=== PATIENT | female | born 1970 ===

== ENCOUNTER 2017-01-07 17:11 | Emergency (ER) | payer OTHER ==
[2017-01-07 17:12] VITALS: BMI 32.5
[2017-01-07 17:20] VITALS: BP 160/105; PULSE 95; RESP 17; TEMP 98.5; O2SAT 95
--- NOTE | 2017-01-07 17:41 | ED PDOC ---
Arrival/HPI - General Chief Complaint: Hip Pain Time Seen by Provider: 01/07/17 17:23 Historian: Patient - History of Present Illness Narrative History of Present Illness (Text): 01/07/17 17:31 A 46 year old female, whose past medical history includes breast cancer, presents to the emergency department complaining of left hip pain for the past 2 months. Patient took Advil and Motrin, with no relief. Patient reports she was seen in [facility] 2 days ago for the same pain and discharged home only on Cipro for a urinary tract infection. Patient notes chills but denies any fever, nausea, vomiting, diarrhea, abdominal pain, urinary symptoms, chest pain, shortness of breath or any other complaints. Patient does not have a PMD; she is seen at a medical clinic. Time/Duration: Other (2 days) Symptom Course: Unchanged Quality: Other Context: Home Past Medical History - Provider Review Nursing Documentation Reviewed: Yes - Infectious Disease Hx of Infectious Diseases: None - Cardiac Hx Cardiac Disorders: No - Pulmonary Hx Respiratory Disorders: No - Neurological Hx Neurological Disorder: No - HEENT Hx HEENT Disorder: No - Renal Hx Renal Disorder: No - Endocrine/Metabolic Hx Endocrine Disorders: No - Hematological/Oncological Hx Anemia: Yes Hx Cancer: Yes Other/Comment: BREAST CA, CHEMO, RADIATION - Integumentary Hx Dermatological Disorder: No - Musculoskeletal/Rheumatological Hx Falls: No - Gastrointestinal Hx Gastrointestinal Disorders: No - Genitourinary/Gynecological Hx Genitourinary Disorders: Yes Hx Urinary Tract Infection: Yes - Psychiatric Hx Psychophysiologic Disorder: No Hx Substance Use: No - Surgical History Hx Breast Biopsy: Yes Hx Mastectomy: Yes Other/Comment: Daniel cath right breast. Breast rollway man (R breast) - Anesthesia Hx Anesthesia: Yes Family/Social History - Physician Review Nursing Documentation Reviewed: Yes Family/Social History: No Known Family HX Smoking Status: Never Smoked Hx Alcohol Use: No Hx Substance Use: No Allergies/Home Meds Allergies/Adverse Reactions: Allergies No Known Allergies Allergy (Verified 01/07/17 17:14) Home Medications: Home Meds Medication Instructions Recorded Confirmed Tamoxifen Citrate 20 mg PO DAILY 01/05/17 01/07/17 Review of Systems - Physician Review All systems were reviewed & negative as marked: Yes - Review of Systems Constitutional: Night Sweats. absent: Fevers Respiratory: absent: SOB Cardiovascular: absent: Chest Pain Gastrointestinal: absent: Abdominal Pain, Diarrhea, Nausea, Vomiting Genitourinary Female: absent: Dysuria, Frequency, Hematuria, Urine Output Changes Musculoskeletal: Other (Left hip pain) Physical Exam Vital Signs Reviewed: Yes Vital Signs Temp Pulse Resp BP Pulse Ox 01/07/17 17:15 98.5 F 95 H 17 160/105 H 95 Temperature: Afebrile Blood Pressure: Hypertensive Pulse: Regular Respiratory Rate: Normal Appearance: Positive for: Well-Appearing, Non-Toxic, Comfortable Pain Distress: None Mental Status: Positive for: Alert and Oriented X 3 - Systems Exam Head: Present: Atraumatic, Normocephalic Lower Extremity: Present: NORMAL PULSES, Normal ROM, Tenderness (Mild lateral hip pain ), Neurovascularly Intact. No: Edema, CALF TENDERNESS, Swelling, Erythema, Deformity, Temperature Abnormalties Neurological: Present: GCS=15, CN II-XII Intact, Speech Normal Skin: Present: Warm, Dry, Normal Color. No: Rashes Psychiatric: Present: Alert, Oriented x 3, Normal Insight, Normal Concentration Medical Decision Making ED Course and Treatment: 01/07/17 17:31 Impression: A 46 year old female with left hip pain. On exam, mild lateral left hip tenderness to palpation. Differential Diagnosis included but are not limited to: Left hip pain Plan: -- Toradol and Percocet -- Reassess and disposition Prior Visits: Notes and results from previous visits were reviewed. Patient seen in [facility] on 01/05/17 for same pain. Progress Notes: Patient's chart from [facility] reviewed. Imaging was done on area of concern; xray showed a lytic lesion on left hip. With patient's history of breast cancer there is a concern for possible metastasis. According to patient she was told she would receive a prescription for Cipro and Percocet but only received a scrip for Cipro, which she has been taking. According to patient's chart at , percocet was prescribed, but she reports taht she never received any script for it. Patient reports she went to she Dr. Angulo, oncologist, today but was not seen due to lack of insurance. Patient will follow up with medical clinic tomorrow. 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 Pain most likely due to lytic lesion, plan is to give patient prescription for Percocet. Patient in agreement with plan. 01/07/17 17:59 Patient reports no relief with nsaids, gabapentin, or muscle relaxants. Will give toradol and 1 percocet tab in the ED and give script for percocet, and she will f/u in the medical clinic tomorrow. - Lab Interpretations I have reviewed the lab results: Yes - Medication Orders Current Medication Orders: Discontinued Medications Ketorolac Tromethamine (Toradol) 60 mg IM STAT STA Stop: 01/07/17 17:44 Last Admin: 01/07/17 17:52 Dose: 60 mg Oxycodone/Acetaminophen (Percocet 5/325 Mg Tab) 1 tab PO STAT STA Stop: 01/07/17 17:44 Last Admin: 01/07/17 17:52 Dose: 1 tab - Scribe Statement The provider has reviewed the documentation as recorded by the Padminiibfabrizio Fink Provider Scribe Attestation: All medical record entries made by the Scribe were at my direction and personally dictated by me. I have reviewed the chart and agree that the record accurately reflects my personal performance of the history, physical exam, medical decision making, and the department course for this patient. I have also personally directed, reviewed, and agree with the discharge instructions and disposition. Disposition/Present on Arrival - Present on Arrival Any Indicators Present on Arrival: No History of DVT/PE: No History of Uncontrolled Diabetes: No Urinary Catheter: No History of Decub. Ulcer: No History Surgical Site Infection Following: None - Disposition Have Diagnosis and Disposition been Completed?: Yes Diagnosis: Lytic bone lesion of left femur Disposition: HOME/ ROUTINE Disposition Time: 17:31 Patient Plan: Discharge Condition: GOOD Additional Instructions: Follow up in the medical clinic tomorrow as scheduled. Percocet for pain. Return to the emergency department if any new concerning symptoms. Prescriptions: oxyCODONE/Acetaminophen [Percocet 5/325 mg Tab] 1 tab PO QID PRN #20 tab PRN Reason: Pain [place] [facility] [place] [facility] [place] - Follow up with primary
[2017-01-07] MEDS ORDERED: Oxycodone/Acetaminophen 5/325 mg Tab PO STA (17:43)
== END 2017-01-07 18:22 | disposition home or self-care (01) ==
LOC: ED 17:11
DX: M89.9 Disorder of bone, unspecified (principal)
CPT/HCPCS: 96372; 99284; J1885